=== PATIENT | male | born 1980 | race Caucasian/White ===

== ENCOUNTER 2020-08-25 09:32 | Emergency (ER) | payer OTHER ==
[2020-08-25 10:44] LABS: HEMOGLOBIN 16.9 gm/dl (14.0-17.5); RED BLOOD COUNT 5.31 M/UL (4.20-5.50); WHITE BLOOD COUNT 5.5 K/UL (4.5-11.0)
[2020-08-25 11:04] LABS: BUN/CREATININE RATIO 13 (0-10)
[2020-08-25] MEDS ORDERED: ONDANSETRON ODT4 MG SL (13:02)
[2020-08-25] MEDS ORDERED: TORADOL 10 MG T10 MG PO (13:02)
[2020-08-25] MEDS ORDERED: FLOMAX 0.4 MG0.4 MG PO (13:02)
== END 2020-08-25 13:15 | disposition home or self-care (01) ==
LOC: ER1 09:32
PROVIDERS: Physician Assistant
DX: N13.2 Hydronephrosis with renal and ureteral calculous obstruction (principal); F17.200 Nicotine dependence, unspecified, uncomplicated; Z88.8 Allergy status to other drugs, medicaments and biological substances; Z79.899 Other long term (current) drug therapy
CPT/HCPCS: 80053; 81001; 85025; 96374; 96375; 99284; J1885; J2405